=== PATIENT | female | born 1990 | race Hispanic/Latino ===

== ENCOUNTER 2017-07-27 00:35 | Emergency (ER) | payer MEDICAID ==
[~2017-07-27] VITALS: Ht 160 cm; Wt 75.7 kg
[2017-07-27 00:50] VITALS: BP 119/68
[2017-07-27] MEDS ORDERED: Ketorolac 30mg Inj IV ONE (01:30)
[2017-07-27] MEDS: LR 1000ml 1,000 ML IV SCH ×3 (01:36→03:16)
[2017-07-27 01:43] LABS: APPEARANCE,URINE CLEAR; BILIRUBIN, URINE NEGATIVE (NEGATIVE); COLOR,URINE PALE YELLOW; GLUCOSE, URINE (UA) NEGATIVE (NEGATIVE); KETONES,URINE NEGATIVE (NEGATIVE); LEUKOCYTE ESTERASE ,URINE 3+ (NEGATIVE); NITRITE,URINE NEGATIVE (NEGATIVE); PH,URINE 6.5 (4.5-8.0); PROTEIN,URINE NEGATIVE (NEGATIVE); UROBILINOGEN,URINE NORMAL MG/DL (0.0-1.0)
[2017-07-27 01:44] LABS: BASOPHILS % (AUTO) 0.7 % (0.0-2.0); HEMATOCRIT 36.2 % (37.0-47.0); HEMOGLOBIN 12.3 G/DL (12.0-16.0); MEAN CORPUSCULAR VOLUME 86 FL (80-99); MONOCYTES % (AUTO) 5.5 % (1.0-10.0); NEUTROPHILS % (AUTO) 58.8 % (45.0-75.0); PLATELET COUNT 264 K/UL (150-450); RED BLOOD COUNT 4.22 M/UL (4.20-5.40); RED CELL DISTRIBUTION WIDTH 13.4 % (11.6-14.8); WHITE BLOOD COUNT 7.8 K/UL (4.8-10.8)
[2017-07-27 01:51] LABS: ANION GAP 5 mmol/L (5-15); BLOOD UREA NITROGEN 20 mg/dL (7-18); CALCIUM 9.1 MG/DL (8.5-10.1); CARBON DIOXIDE 29 MMOL/L (21-32); CHLORIDE 103 MMOL/L (98-107); CREATININE 0.8 MG/DL (0.55-1.30); POTASSIUM 4.3 MMOL/L (3.5-5.1); SODIUM 137 MMOL/L (136-145)
[2017-07-27 01:56] LABS: ALANINE AMINOTRANSFERASE 92 U/L (12-78); ALBUMIN 3.2 G/DL (3.4-5.0); ALBUMIN/GLOBULIN RATIO 0.8 (1.0-2.7); ALKALINE PHOSPHATASE 135 U/L (46-116); ASPARTATE AMINO TRANSFERASE 54 U/L (15-37); BILIRUBIN,TOTAL 0.3 MG/DL (0.2-1.0)
[2017-07-27] MEDS ORDERED: cefTRIAXone 1 GM in NS 55 ML IVPB ONE (02:30)
--- NOTE | 2017-07-27 02:32 | Emergency Room Report ---
History of Present Illness General Chief Complaint: Abdominal Pain Source: Patient Present Illness HPI Is a 26-year-old female who had a spontaneous vaginal delivery about a month ago. She is breast-feeding. During a one of the ultrasound showed that she has an ovarian cyst. She doesn't remember which side. She present with chief complaint of acute onset of left lower caught in abdominal pain. No fever or chills but sharp in nature. No radiation. No dysuria frequency. Pain is 8/10. Allergies: Coded Allergies: No Known Allergies (Unverified , 07/27/17) Patient History Past Medical History: see triage record, old chart reviewed Past Surgical History: none Pertinent Family History: none Last Menstrual Period: none, just gave on jun 18 Now: No : 1 Immunizations: other Reviewed Nursing Documentation: PMH: Agreed, PSxH: Agreed Nursing Documentation-PMH Past Medical History: No Stated History Review of Systems Eye: Denies: eye pain, blurred vision ENT: Denies: ear pain, nose congestion, throat swelling Respiratory: Denies: cough, shortness of breath Cardiovascular: Denies: chest pain, palpitations Gastrointestinal: Reports: abdominal pain, Denies: diarrhea, nausea, vomiting Musculoskeletal: Denies: back pain, joint pain Skin: Denies: rash Neurological: Denies: headache, numbness Endocrine: Denies: increased thirst, increased urine Hematologic/Lymphatic: Denies: easy bruising All Other Systems: negative except mentioned in HPI Physical Exam Vital Signs Date Time Temp Pulse Resp B/P (MAP) Pulse Ox O2 Delivery O2 Flow Rate FiO2 07/27/17 00:41 98.3 78 18 119/68 98 Room Air 98.2 vitals normal Sp02 EP Interpretation: reviewed, normal General Appearance: well appearing, no apparent distress, alert Head: normocephalic, atraumatic Eyes: bilateral eye PERRL, bilateral eye EOMI ENT: hearing grossly normal, normal pharynx Neck: full range of motion, supple, no meningismus Respiratory: chest non-tender, lungs clear, normal breath sounds Cardiovascular #1: regular rate, rhythm, no murmur Gastrointestinal: normal bowel sounds, no mass, no organomegaly, no bruit, non- distended, tenderness - Mild left lower quadrant Musculoskeletal: back normal, gait/station normal, normal range of motion Psychiatric: mood/affect normal Skin: warm/dry Medical Decision Making Diagnostic Impression: Primary Impression: Abdominal pain Qualified Codes: R10.32 - Left lower quadrant pain Additional Impression: UTI (urinary tract infection) Qualified Codes: N30.00 - Acute cystitis without hematuria ER Course History with abdominal pain. This may be a small ruptured ovarian cyst. She is pain-free now after Toradol. She no evidence of acute abdomen. She has no discharge or pelvic pain. Based on the CT scan findings I think this is just postoperative changes. We'll discharge home. Lab Results Impression labs unremarkable CT/MRI/US Diagnostic Results CT/MRI/US Diagnostic Results : Imaging Test Ordered: CT abdomen and Impression Read by radiologist. No evidence of bowel structures or pneumoperitoneum. No free fluid. Normal appendix. Mild right hydronephrosis with bilateral ureteral dilatation. No renal calculi seen. May reflect changes. Uterus is mildly enlarged. 1.7 cm left ovarian cyst. Multiple small gas locules and region of vagina extending posteriorly near region the cervix which are nonspecific. Last Vital Signs Date Time Temp Pulse Resp B/P (MAP) Pulse Ox O2 Delivery O2 Flow Rate FiO2 07/27/17 00:50 98.2 18 119/68 98 Room Air 98.2 07/27/17 00:41 78 Status: improved Disposition: HOME, SELF-CARE Condition: Stable Scripts Cephalexin* (KEFLEX*) 500 Mg Capsule 500 MG ORAL TID, #21 CAP 0 Refills Prov: JOSE JUAN DE GUZMAN M.D. 07/27/17 Ibuprofen* (MOTRIN*) 600 Mg Tablet 600 MG ORAL THREE TIMES A DAY, #30 TAB 0 Refills Prov: JOSE JUAN DE GUZMAN M.D. 07/27/17 Referrals: NON PHYSICIAN (PCP) Additional Instructions: Followup your DrMira in 2-3 days if not better. Return if worse. JOSE JUAN DE GUZMAN M.D. Jul 27, 2017 02:32
[2017-07-27] MEDS ORDERED: IBUPROFEN600 MG ORAL (03:04)
[2017-07-27] MEDS ORDERED: KEFLEX500 MG ORAL (03:04)
[2017-07-27 03:30] VITALS: BP 112/67
--- NOTE | 2017-07-27 10:19 | Diagnostic Imaging Report ---
Indication: Abdominal pain. Technique: Continuous helical transaxial imaging of the abdomen and pelvis was obtained from the lung bases to the pubic symphysis. No intravenous contrast was administered. Coronal 2-D reformats were also obtained. Automatic Exposure Control was utilized. Total Dose length Product (DLP): 1238.[address] Dose Index Volume (CTDIvol): 25.2 mGy Comparison: none Findings: The liver is mildly hypodense consistent with fatty infiltration. There is mild bilateral hydronephrosis. There are no stones identified. This may be related to the enlarged uterus which is in keeping with the recent state. The urinary bladder is unremarkable. There is no free fluid identified. Some air noted within the vaginal vault which may be a normal finding. No free air identified. Gallbladder is contracted. Lung bases are clear. IMPRESSION: Moderate hepatomegaly and fatty infiltration Mild hydronephrosis probably on the basis of the uterus. No obstructing stone seen. [facility] has communicated the preliminary results to the Emergency Department. Their findings are largely concordant with this report. The CT scanner at [facility] is accredited by the [employer] [place] [employer] and the scans are performed using dose optimization techniques as appropriate to a performed exam including Automatic Exposure control.
== END 2017-07-27 03:40 | disposition home or self-care (01) ==
LOC: MERGE 01:00 → EMR 01:00
DX: O90.89 Other complications of the puerperium, not elsewhere classified (principal); R10.32 Left lower quadrant pain; K76.0 Fatty (change of) liver, not elsewhere classified; R16.0 Hepatomegaly, not elsewhere classified; N13.30 Unspecified hydronephrosis; O86.20 Urinary tract infection following delivery, unspecified
CPT/HCPCS: 36415; 74176; 80053; 81003; 81025; 83690; 85025; 96374; 99284; J0696; J1885; J7120